=== PATIENT | male | born 1990 | race Caucasian/White ===

== ENCOUNTER 2017-04-30 06:40 | Emergency (ER) | payer BC, OTHER ==
[~2017-04-30] VITALS: Ht 177.8 cm; Wt 117.9 kg
[~2017-04-30 06:40] MED LIST: LEVO500T2 PO; NAPR500T3 PO
[2017-04-30] MEDS ORDERED: KETOROLAC 30 MG/ML VIAL IVP STA (07:46)
[2017-04-30] MEDS ORDERED: NS IV 1000 ML 1,000 ML IV ONE (07:46)
[2017-04-30 07:51] LABS: BASOPHILS % (AUTO) 0 % (0-10); EOSINOPHILS # (AUTO) 0.1 10^3/uL (0.0-0.3); EOSINOPHILS % (AUTO) 0 % (0-10); LYMPHOCYTES % (AUTO) 8 % (12-44); MEAN CORPUSCULAR HEMOGLOBIN 29 PG (25-34); MEAN CORPUSCULAR HGB CONC 33 G/DL (32-36); MEAN CORPUSCULAR VOLUME 87 FL (80-99); MEAN PLATELET VOLUME 10.6 FL (7.4-10.4); MONOCYTES # (AUTO) 0.4 X 10^3 (0.0-1.0); MONOCYTES % (AUTO) 3 % (0-12); NEUTROPHILS # (AUTO) 11.6 X 10^3 (1.8-7.8); NEUTROPHILS % (AUTO) 89 % (42-75); PLATELET COUNT 239 10^3/uL (130-400); RED BLOOD COUNT 4.81 10^6/uL (4.35-5.85); WHITE BLOOD COUNT 13.1 10^3/uL (4.3-11.0)
--- NOTE | 2017-04-30 07:51 | ED Back Pain ---
General Chief Complaint: Back Problems Stated Complaint: BACK PAIN Nursing Triage Note: PT AMBULATED TO ROOM. PT STANDING AT BEDSIDE. PT C/O RIGHT UPPER BACK PAIN THAT STARTED APPROX. 2200 LAST NIGHT. PT STATES THE PAIN HAS MADE HIM FEEL NAUSEOUS AND HE HAS HAD SOME TINGLING IN HIS BACK SINCE 2200. PT HAS BEEN TAKING IBUPROFEN WHEN ABLE FOR THE PAIN. Nursing Sepsis Screen: No Definite Risk Source of Information: Patient Exam Limitations: No Limitations History of Present Illness Time Seen by Provider: 07:26 Initial Comments Here with report of right upper back pain that radiates around to the flank and a little lower. Denies abdominal pain but states when he stands up he has fullness and pressure in the epigastric region. Did have a loose stool this morning. Denies dysuria. Has had nausea but no vomiting. Tried ibuprofen 400 mg every hours ago and that has not helped. Also put icy hot on his back and that did not help. Denies any recent illness or injury. Never had anything like this before. Timing/Duration: 12 Hours Severity: Moderate Pain/Injury Location: Back, Other (right CVA and right flank) Modifying Factors: Improves With Other (persistently painful despite rest or movement) Associated Symptoms: No muscle spasms, No weakness, No lower back pain, No loss of bladder control, No loss of bowel control Allergies and Home Medications Allergies Coded Allergies: erythromycin base (Verified Allergy, Unknown, 06/10/16) Home Medications Cephalexin 500 Mg Tablet, 500 MG PO BID, #14 Ref 0 Prescribed by: ETHAN NAVA on 04/30/17 0943 Levofloxacin 500 Mg Tablet, 500 MG PO DAILY, #10 Prescribed by: JAVIER WALKER on 06/10/16 0128 Naproxen 500 Mg Tablet, 500 MG PO BID, #20 Prescribed by: JAVIER WALKER on 06/10/16 0128 Constitutional: see HPI, No chills, No fever EENTM: no symptoms reported Respiratory: no symptoms reported, No cough, No short of breath Cardiovascular: no symptoms reported Gastrointestinal: abdominal pain (epigastric fullness when sitting up), nausea , No vomiting Genitourinary: no symptoms reported Musculoskeletal: see HPI, back pain, No muscle pain Skin: no symptoms reported All Other Systems Reviewed Negative Unless Noted: Yes Past Eyuzcgr-Kmqmdi-Dpgykd Hx Patient Social History Alcohol Use: Denies Use Recreational Drug Use: No Smoking Status: Never a Smoker 2nd Hand Smoke Exposure: No Recent Foreign Travel: No Contact w/Someone Who Travel: No Recent Infectious Disease Expo: No Recent Hopitalizations: No Physical Abuse: No Sexual Abuse: No Seasonal Allergies Seasonal Allergies: No Surgeries History of Surgeries: Yes (HIATAL HERNIA REPAIR 12/2015-DR. MARR) Surgeries: Adenoidectomy, Tonsillectomy Respiratory History of Respiratory Disorde: No Cardiovascular History of Cardiac Disorders: No Neurological History of Neurological Disord: No Reproductive System Hx Reproductive Disorders: No Sexually Transmitted Disease: No Genitourinary History of Genitourinary Disor: No Gastrointestinal History of Gastrointestinal Di: Yes Gastrointestinal Disorders: Gastroesophageal Reflux, Hiatal Hernia Musculoskeletal History of Musculoskeletal Dis: No Endocrine History of Endocrine Disorders: Yes (OBESITY) HEENT History of HEENT Disorders: No Cancer History of Cancer: No Psychosocial History of Psychiatric Problem: No Suicide Risk Score: 0 Integumentary History of Skin or Integumenta: No Blood Transfusions History of Blood Disorders: No Reviewed Nursing Assessment Reviewed/Agree w Nursing PMH: Yes Family Medical History Significant Family History: No Pertinent Family Hx Physical Exam Vital Signs Vital Sign - Last 12Hours 04/30/17 06:49 Temp 97.2 Pulse 93 Resp 20 B/P (MAP) 123/70 Pulse Ox 97 O2 Delivery Room Air Capillary Refill : Less Than 3 Seconds General Appearance: WD/WN, Mild Distress (right flank pain), Obese HEENT: PERRL/EOMI, Pharynx Normal Neck: Non Tender, Supple Cardiovascular: Regular Rate, Rhythm, No Murmur Respiratory: Lungs Clear, Normal Breath Sounds Gastrointestinal: Non Tender, Soft Back: No CVA Tenderness (L), CVA Tenderness (R), No Muscle Spasm, No Vertebral Tenderness Extremity: Normal Range of Motion, Non Tender Neurologic/Psychiatric: Alert, Oriented x3 Skin: Normal Color, Warm/Dry Progress/Results/Core Measures Results/Orders Lab Results Laboratory Tests Test 04/30/17 07:42 04/30/17 08:40 Range/Units White Blood Count 13.1 H 4.3-11.0 10^3/uL Red Blood Count 4.81 4.35-5.85 10^6/uL Hemoglobin 13.9 13.3-17.7 G/DL Hematocrit 42 40-54 % Mean Corpuscular Volume 87 80-99 FL Mean Corpuscular Hemoglobin 29 25-34 PG Mean Corpuscular Hemoglobin Concent 33 32-36 G/DL Red Cell Distribution Width 13.0 10.0-14.5 % Platelet Count 239 130-400 10^3/uL Mean Platelet Volume 10.6 H 7.4-10.4 FL Neutrophils (%) (Auto) 89 H 42-75 % Lymphocytes (%) (Auto) 8 L 12-44 % Monocytes (%) (Auto) 3 0-12 % Eosinophils (%) (Auto) 0 0-10 % Basophils (%) (Auto) 0 0-10 % Neutrophils # (Auto) 11.6 H 1.8-7.8 X 10^3 Lymphocytes # (Auto) 1.0 1.0-4.0 X 10^3 Monocytes # (Auto) 0.4 0.0-1.0 X 10^3 Eosinophils # (Auto) 0.1 0.0-0.3 10^3/uL Basophils # (Auto) 0.0 0.0-0.1 10^3/uL Neutrophils % (Manual) 87 % Lymphocytes % (Manual) 8 % Monocytes % (Manual) 5 % Blood Morphology Comment NORMAL Sodium Level 139 135-145 MMOL/L Potassium Level 3.6 3.6-5.0 MMOL/L Chloride Level 106 98-107 MMOL/L Carbon Dioxide Level 26 21-32 MMOL/L Anion Gap 7 5-14 MMOL/L Blood Urea Nitrogen 7 7-18 MG/DL Creatinine 0.71 0.60-1.30 MG/DL Estimat Glomerular Filtration Rate > 60 BUN/Creatinine Ratio 10 Glucose Level 117 H 70-105 MG/DL Calcium Level 9.2 8.5-10.1 MG/DL Total Bilirubin 0.4 0.1-1.0 MG/DL Aspartate Amino Transf (AST/SGOT) 11 5-34 U/L Alanine Aminotransferase (ALT/SGPT) 14 0-55 U/L Alkaline Phosphatase 71 40-136 U/L Total Protein 7.8 6.4-8.2 GM/DL Albumin 4.1 3.2-4.5 GM/DL Lipase 6 L 8-78 U/L Urine Color YELLOW Urine Clarity VERY CLOUDY H Urine pH 5 5-9 Urine Specific Lutz 1.015 L 1.016-1.022 Urine Protein 1+ H NEGATIVE Urine Glucose (UA) NEGATIVE NEGATIVE Urine Ketones NEGATIVE NEGATIVE Urine Nitrite NEGATIVE NEGATIVE Urine Bilirubin NEGATIVE NEGATIVE Urine Urobilinogen NORMAL NORMAL MG/DL Urine Leukocyte Esterase 3+ H NEGATIVE Urine RBC (Auto) 2+ H NEGATIVE Urine RBC NONE /HPF Urine WBC 10-25 H /HPF Urine Squamous Epithelial Cells 25-50 H /HPF Urine Crystals NONE /LPF Urine Bacteria MODERATE H /HPF Urine Casts NONE /LPF Urine Mucus NEGATIVE /LPF Urine Culture Indicated YES My Orders Orders - ETHAN NAVA MD Cbc With Automated Diff (04/30/17 07:46) Comprehensive Metabolic Panel (04/30/17 07:46) Lipase (04/30/17 07:46) Ua Culture If Indicated (04/30/17 07:46) Saline Lock/Iv-Start (04/30/17 07:46) Ns Iv 1000 Ml (Sodium Chloride 0.9%) (04/30/17 07:46) Ketorolac Injection (Toradol Injection) (04/30/17 07:46) Manual Differential (04/30/17 07:42) Ct Abd/Pelvis Wo(Kidney Stone) (04/30/17 08:30) Urine Culture (04/30/17 08:40) Medications Given in ED Current Medications Medications Dose Ordered Sig/Jennifer Route Start Time Stop Time Status Last Admin Dose Admin Sodium Chloride 1,000 ml @ 0 mls/hr Q0M ONCE IV 04/30/17 07:46 04/30/17 07:47 DC 04/30/17 07:59 0 MLS/HR Vital Signs/I&O Vital Sign - Last 12Hours 04/30/17 06:49 Temp 97.2 Pulse 93 Resp 20 B/P (MAP) 123/70 Pulse Ox 97 O2 Delivery Room Air Blood Pressure Mean: 87 Progress Note : Progress Note Seen and evaluated. IV, labs, UA, normal saline 1 L bolus and Toradol 30 mg IV ordered. Monitor patient. Somewhat improved after Toradol. CT stone protocol ordered due to persistence of right CVA pain. Monitor patient. 0930: Pain remains somewhat improved. CT does not show any stones. Urinary tract infection noted. We'll treat this outpatient. Discharged home with return precautions. Patient verbalize understanding instructions and agreement with plan. Diagnostic Imaging Diagonstic Imaging: CT Plain Films/CT/US/NM/MRI: abdomen, pelvis Comments VIA [facility]. [place], [place] NAME: ORSETTA LOPEZ [facility] REC#: [id number] PT STATUS: REG ER : 1990 PHYSICIAN: ETHAN NAVA MD ADMIT DATE: 04/30/17/ER Draft Date of Exam:04/30/17 CT ABD/PELVIS WO(KIDNEY STONE) PROCEDURE: CT urinary tract, rule out kidney stone. TECHNIQUE: Multiple contiguous axial images were obtained through the abdomen and pelvis without the use of intravenous contrast. INDICATION: Right flank pain. COMPARISON: None. FINDINGS: The lung bases are clear. The liver, gallbladder, pancreas, spleen and adrenal glands appear unremarkable. The kidneys, ureters and bladder appear unremarkable without evidence of stone or obstructive uropathy. The uterus and adnexa appear unremarkable. The appendix appears normal. There is no evidence of bowel obstruction or focal inflammatory process. There are postoperative changes in the stomach. There is no free fluid, free air or adenopathy. The abdominal aorta appears normal in caliber. No acute osseous abnormality is seen. IMPRESSION: No acute abnormality is demonstrated. Dictated on workstation # [id number] Dict: 04/30/17908 Trans: 04/30/17913 [facility] [id number] Interpreted by: JOSE RAUL THOMASON DO Electronically signed by: Departure Impression Impression: Primary Impression: Urinary tract infection Qualified Codes: N30.00 - Acute cystitis without hematuria Disposition: 01 HOME, SELF-CARE Condition: Stable Departure-Patient Inst. Decision time for Depature: 09:42 Referrals: DIANA GARY MD (PCP/Family) Primary Care Physician Patient Instructions: Urinary Tract Infection, Adult (DC) Add. Discharge Instructions: All discharge instructions reviewed with patient and/or family. Voiced understanding. You may take ibuprofen 800 mg every 8 hours as needed for pain. You may take Tylenol 1000 mg every 8 hours as needed for pain. Drink plenty of fluids. Take other meds as prescribed. Follow-up with your DrJs in a few days for recheck. Return for worse pain, fever, vomiting, weakness, breathing problems or other concerns as needed. Scripts Cephalexin (Cephalexin) 500 Mg Tablet 500 MG PO BID, #14 TAB 0 Refills Prov: ETHAN NAVA MD 04/30/17 ETHAN NAVA MD Apr 30, 2017 07:51
[2017-04-30 08:10] LABS: ALANINE AMINOTRANSFERASE 14 U/L (0-55); ALBUMIN 4.1 GM/DL (3.2-4.5); ANION GAP 7 MMOL/L (5-14); ASPARTATE AMINO TRANSFERASE 11 U/L (5-34); BILIRUBIN,TOTAL 0.4 MG/DL (0.1-1.0); BLOOD UREA NITROGEN 7 MG/DL (7-18); BUN/CREATININE RATIO 10; CALCIUM 9.2 MG/DL (8.5-10.1); CARBON DIOXIDE 26 MMOL/L (21-32); CHLORIDE 106 MMOL/L (98-107); CREATININE SERUM 0.71 MG/DL (0.60-1.30); GFR ESTIMATED > 60; GLUCOSE 117 MG/DL (70-105); LIPASE 6 U/L (8-78); POTASSIUM 3.6 MMOL/L (3.6-5.0); SODIUM 139 MMOL/L (135-145); TOTAL PROTEIN 7.8 GM/DL (6.4-8.2)
[2017-04-30 08:26] LABS: LYMPHOCYTES % (MANUAL) 8 %; NEUTROPHILS % (MANUAL) 87 %
[2017-04-30 08:48] LABS: BILIRUBIN,URINE NEGATIVE (NEGATIVE); KETONES,URINE NEGATIVE (NEGATIVE); LEUKOCYTE ESTERASE ,URINE 3+ (NEGATIVE); NITRITE,URINE NEGATIVE (NEGATIVE); PH,URINE 5 (5-9); PROTEIN,URINE 1+ (NEGATIVE); UROBILINOGEN,URINE NORMAL (NORMAL)
[2017-04-30 08:56] LABS: SQUAMOUS EPITHELIAL CELL,UR 25-50 /HPF
--- NOTE | 2017-04-30 09:15 | Diagnostic Imaging Report ---
PROCEDURE: CT urinary tract, rule out kidney stone. TECHNIQUE: Multiple contiguous axial images were obtained through the abdomen and pelvis without the use of intravenous contrast. INDICATION: Right flank pain. COMPARISON: None. FINDINGS: The lung bases are clear. The liver, gallbladder, pancreas, spleen and adrenal glands appear unremarkable. The kidneys, ureters and bladder appear unremarkable without evidence of stone or obstructive uropathy. The uterus and adnexa appear unremarkable. The appendix appears normal. There is no evidence of bowel obstruction or focal inflammatory process. There are postoperative changes in the stomach. There is no free fluid, free air or adenopathy. The abdominal aorta appears normal in caliber. No acute osseous abnormality is seen. IMPRESSION: No acute abnormality is demonstrated. Dictated by: Dictated on workstation # [id number]
[2017-04-30] MEDS ORDERED: CEPH500T PO (09:43)
[2017-04-30 10:00] VITALS: BP 118/93
== END 2017-04-30 10:00 | disposition home or self-care (01) ==
LOC: EDUNIT# 06:40 → ER 06:42
DX: N39.0 Urinary tract infection, site not specified (principal); K21.9 Gastro-esophageal reflux disease without esophagitis; E66.9 Obesity, unspecified; Z87.19 Personal history of other diseases of the digestive system
CPT/HCPCS: 36415; 74176; 80053; 81000; 83690; 85007; 85027; 87088; 96361; 96374